=== PATIENT | female | born 1970 | race Caucasian/White ===

== ENCOUNTER 2018-08-12 18:15 | Inpatient (IN) | payer MEDICAID, OTHER ==
[2018-08-12] MEDS: SOD CHLORIDE 0.9% 500 ML IV (18:38)
[2018-08-12 19:35] LABS: WHITE BLOOD COUNT 7.7 10^3/ul (4.8-10.8)
[2018-08-12 19:35] LABS: ADD MAN DIFF? NO; BASOPHILS % 0.4 % (0.0-2.0); EOSINOPHILS # 0.1 10^3/ul (0.0-0.5); EOSINOPHILS % 1.4 % (0.0-7.0); HEMATOCRIT 26.4 % (37.0-47.0); HEMOGLOBIN 8.2 g/dl (12.0-16.0); LYMPHOCYTES # 0.8 10^3/ul (0.8-2.9); LYMPHOCYTES % 10.5 % (15.0-51.0); MEAN CORPUSCULAR HEMOGLOBIN 25.5 pg (29.0-33.0); MEAN CORPUSCULAR HGB CONC 31.1 g/dl (32.0-37.0); MONOCYTE # 0.6 10^3/ul (0.3-0.9); MONOCYTES % 7.2 % (0.0-11.0); NEUTROPHIL # 6.1 10^3/ul (1.6-7.5); NEUTROPHILS % 80.1 % (39.0-77.0); PLATELET COUNT 317 10^3/UL (140-415); RED BLOOD COUNT 3.22 10^6/ul (4.20-5.40); RED CELL DISTRIBUTION WIDTH 17.2 % (11.5-14.5)
[2018-08-12 19:51] LABS: INR 1.08; PROTIME 14.1 Sec (11.9-14.9); PT RATIO 1.1
[2018-08-12 19:52] LABS: PARTIAL THROMBOPLASTIN TIME 36.7 Sec (23.0-35.0)
[2018-08-12 19:56] LABS: ADD UMIC YES; UR ASCORBIC ACID NEGATIVE (NEGATIVE); UR BILIRUBIN (Dip) NEGATIVE (NEGATIVE); UR BLOOD (Dip) 2+ mg/dL (NEGATIVE); UR CLARITY CLEAR (CLEAR); UR COLOR YELLOW (YELLOW); UR GLUCOSE (Dip) NEGATIVE (NEGATIVE); UR KETONES (Dip) NEGATIVE (NEGATIVE); UR LEUKOCYTE ESTERASE (Dip) 1+ Leu/ul (NEGATIVE); UR NITRITE (Dip) NEGATIVE (NEGATIVE); UR RBC 5 /HPF (0-5); UR SPECIFIC GRAVITY (Dip) 1.009 (1.003-1.030); UR SQUAMOUS EPITHELIAL CELL FEW /HPF (FEW); UR TOTAL PROTEIN (Dip) 1+ mg/dl (NEGATIVE); UR UROBILINOGEN (Dip) NEGATIVE (NEGATIVE); UR WBC 16 /HPF (0-5)
[2018-08-12 20:06] LABS: ALANINE AMINOTRANSFERASE 28 IU/L (13-69); ALBUMIN 3.5 g/dl (3.3-4.9); ALBUMIN/GLOBULIN RATIO 0.89; ALKALINE PHOSPHATASE 83 IU/L (42-121); ANION GAP 12 (8-16); ASPARTATE AMINO TRANSFERASE 28 IU/L (15-46); BILIRUBIN,INDIRECT 0.3 mg/dl (0-1.1); BILIRUBIN,TOTAL 0.3 mg/dl (0.2-1.3); BLOOD UREA NITROGEN 12 mg/dl (7-20); CALCIUM 8.5 mg/dl (8.4-10.2); CARBON DIOXIDE 31 mmol/L (21-31); CHLORIDE 95 mmol/L (97-110); CREATININE 1.03 mg/dl (0.44-1.00); GLUCOSE 145 mg/dl (70-220); LIPASE 21 U/L (23-300); SODIUM 135 mmol/L (135-144); TOTAL PROTEIN 7.4 g/dl (6.1-8.1)
[2018-08-12 20:10] LABS: POTASSIUM 2.9 mmol/L (3.5-5.1)
[2018-08-12 20:17] LABS: B-TYPE NATRIURETIC PEPTIDE 368 PG/ML (0-125); TROPONIN-I < 0.012 ng/ml (0.000-0.120)
[2018-08-12] MEDS: CEFTRIAXONE 1 GM/50 ML (PMX) 50 ML IVPB (20:37)
[2018-08-12] MEDS: POTASSIUM CHLORIDE 100 ML IVPB ×2 (20:38→22:42)
[2018-08-12] MEDS: MAGNESIUM SULFATE 1 GM/D5W 100 ML IVPB (20:38)
[2018-08-12] MEDS: POTASSIUM CHLORIDE (SR) 20 MEQ TAB PO (20:38)
[2018-08-12] MEDS: ENOXAPARIN 80 MG/0.8 ML SYG SC (23:47)
[2018-08-13 00:39] LABS: CK-MB 0.43 ng/ml (0.0-2.4); TROPONIN-I < 0.012 ng/ml (0.000-0.120)
[2018-08-13 00:42] LABS: CK INDEX 0.6; CREATINE KINASE 72 IU/L (23-200)
[2018-08-13] MEDS ORDERED: ONDANSETRON 4 MG INJ IV (06:00)
[2018-08-13] MEDS ORDERED: ACETAMINOPHEN 325 MG TAB PO (06:00)
[2018-08-13] MEDS ORDERED: NACL 0.9% 3 ML SYG IV (06:00)
[2018-08-13] MEDS ORDERED: NITROGLYCERIN (SL) 0.4 MG TAB SL (06:00)
[2018-08-13] MEDS ORDERED: ALBUTEROL/IPRATROPIUM (NEB) 3 ML AMP HHN (06:00)
[2018-08-13 06:13] LABS: WHITE BLOOD COUNT 7.1 10^3/ul (4.8-10.8)
[2018-08-13 06:13] LABS: ABNORMAL IP MESSAGE 1; ADD MAN DIFF? NO; BASOPHILS % 0.3 % (0.0-2.0); EOSINOPHILS # 0.1 10^3/ul (0.0-0.5); EOSINOPHILS % 0.8 % (0.0-7.0); HEMATOCRIT 25.3 % (37.0-47.0); HEMOGLOBIN 7.7 g/dl (12.0-16.0); LYMPHOCYTES # 0.5 10^3/ul (0.8-2.9); LYMPHOCYTES % 6.8 % (15.0-51.0); MEAN CORPUSCULAR HEMOGLOBIN 25.3 pg (29.0-33.0); MEAN CORPUSCULAR HGB CONC 30.4 g/dl (32.0-37.0); MEAN CORPUSCULAR VOLUME 83.2 fl (82.0-101.0); MONOCYTE # 0.5 10^3/ul (0.3-0.9); MONOCYTES % 6.8 % (0.0-11.0); PLATELET COUNT 313 10^3/UL (140-415); RED BLOOD COUNT 3.04 10^6/ul (4.20-5.40); RED CELL DISTRIBUTION WIDTH 17.3 % (11.5-14.5)
[2018-08-13 06:25] LABS: POSITIVE DIFF @See below
[2018-08-13 06:38] LABS: HEMOGLOBIN A1C 5.6 % (0-5.9)
[2018-08-13 06:39] LABS: ALBUMIN/GLOBULIN RATIO 0.75; ANION GAP 12 (8-16); BILIRUBIN,TOTAL 0.2 mg/dl (0.2-1.3); CHOL/HDL RATIO 4.7 RATIO; LDL CHOLESTEROL,CALCULATED 73 mg/dl
[2018-08-13 06:43] LABS: ALANINE AMINOTRANSFERASE 34 IU/L (13-69); ALKALINE PHOSPHATASE 73 IU/L (42-121); ASPARTATE AMINO TRANSFERASE 26 IU/L (15-46); BLOOD UREA NITROGEN 13 mg/dl (7-20); CALCIUM 8.7 mg/dl (8.4-10.2); CARBON DIOXIDE 29 mmol/L (21-31); CHLORIDE 105 mmol/L (97-110); CREATININE 0.83 mg/dl (0.44-1.00); GLUCOSE 120 mg/dl (70-220); MAGNESIUM 1.9 mg/dl (1.7-2.5); POTASSIUM 3.8 mmol/L (3.5-5.1); SODIUM 142 mmol/L (135-144)
[2018-08-13 06:44] LABS: ALBUMIN 2.7 g/dl (3.3-4.9); BILIRUBIN,INDIRECT 0.2 mg/dl (0-1.1); CHOLESTEROL 118 mg/dl (100-200); HDL CHOLESTEROL 25 mg/dl (37-92); TOTAL PROTEIN 6.3 g/dl (6.1-8.1); TRIGLYCERIDES 100 mg/dl (0-149)
[2018-08-13 06:51] LABS: CK INDEX 0.5; CK-MB 0.27 ng/ml (0.0-2.4); CREATINE KINASE 54 IU/L (23-200); TROPONIN-I < 0.012 ng/ml (0.000-0.120)
[2018-08-13 08:34] LABS: IRON 43 ug/dl (35-150)
[2018-08-13] MEDS: ENOXAPARIN 80 MG/0.8 ML SYG SC ×2 (08:42→20:52)
[2018-08-13] MEDS: ASPIRIN 81 MG TAB PO (08:43)
[2018-08-13] MEDS: SOD CHLORIDE 0.9% 500 ML IV (08:43)
[2018-08-13 08:44] LABS: % IRON SATURATION 20 % SAT (22-52); TOTAL IRON BINDING CAPACITY 216 ug/dl (241-421)
[2018-08-13] MEDS ORDERED: ENOXAPARIN 80 MG/0.8 ML SYG SC (09:00)
[2018-08-13] MEDS: IOHEXOL 100 ML (15:48)
[2018-08-13] MEDS: SOD CHLORIDE 0.9% 100 ML (15:48)
[2018-08-13 16:40] LABS: OCCULT BLOOD STOOL POSITIVE (NEGATIVE)
[2018-08-13 16:45] LABS: IMMEDIATE SPIN CROSSMATCH 1 1
[2018-08-13] MEDS: traMADol 50 MG TAB PO (18:38)
[2018-08-14] MEDS: traMADol 50 MG TAB PO (03:05)
[2018-08-14 06:13] LABS: ADD MAN DIFF? NO
[2018-08-14 06:25] LABS: WHITE BLOOD COUNT 6.6 10^3/ul (4.8-10.8)
[2018-08-14 06:25] LABS: BASOPHILS % 0.3 % (0.0-2.0); EOSINOPHILS # 0.1 10^3/ul (0.0-0.5); EOSINOPHILS % 1.8 % (0.0-7.0); HEMATOCRIT 27.8 % (37.0-47.0); HEMOGLOBIN 8.5 g/dl (12.0-16.0); LYMPHOCYTES # 0.7 10^3/ul (0.8-2.9); LYMPHOCYTES % 10.8 % (15.0-51.0); MEAN CORPUSCULAR HEMOGLOBIN 25.8 pg (29.0-33.0); MEAN CORPUSCULAR HGB CONC 30.6 g/dl (32.0-37.0); MEAN CORPUSCULAR VOLUME 84.2 fl (82.0-101.0); MEAN PLATELET VOLUME 9.3 fl (7.4-10.4); MONOCYTE # 0.4 10^3/ul (0.3-0.9); MONOCYTES % 6.7 % (0.0-11.0); NEUTROPHIL # 5.3 10^3/ul (1.6-7.5); NEUTROPHILS % 79.9 % (39.0-77.0); PLATELET COUNT 310 10^3/UL (140-415); RED CELL DISTRIBUTION WIDTH 16.9 % (11.5-14.5)
[2018-08-14 06:54] LABS: ANION GAP 11 (8-16); BLOOD UREA NITROGEN 11 mg/dl (7-20); CARBON DIOXIDE 31 mmol/L (21-31); CHLORIDE 102 mmol/L (97-110); CREATININE 0.79 mg/dl (0.44-1.00); GLUCOSE 105 mg/dl (70-220); POTASSIUM 3.3 mmol/L (3.5-5.1); SODIUM 141 mmol/L (135-144)
[2018-08-14] MEDS: ASPIRIN 81 MG TAB PO (08:22)
[2018-08-14] MEDS: ENOXAPARIN 80 MG/0.8 ML SYG SC (08:24)
[2018-08-14] MEDS: POTASSIUM CHLORIDE 20 MEQ POWDER FOR ORAL SOLN PO (08:27)
== END 2018-08-14 13:00 | disposition home or self-care (01) | DRG 313 ==
LOC: E/R 18:15 → TEL 22:23
PROC: 30233N1 Transfusion of Nonautologous Red Blood Cells into Peripheral Vein, Percutaneous Approach (ICD-10-PCS; principal; 2018-08-13)
DX: R07.89 Other chest pain (principal); E87.1 Hypo-osmolality and hyponatremia; N39.0 Urinary tract infection, site not specified; C79.51 Secondary malignant neoplasm of bone; I82.412 Acute embolism and thrombosis of left femoral vein; D63.0 Anemia in neoplastic disease; E87.6 Hypokalemia; D64.81 Anemia due to antineoplastic chemotherapy; Z85.42 Personal history of malignant neoplasm of other parts of uterus; Z86.718 Personal history of other venous thrombosis and embolism
CPT/HCPCS: 36415; 36430; 71045; 71275; 80048; 80053; 80061; 81001; 82270; 82550; 82553; 82728; 83036; 83540; 83690; 83735; 83880; 84443; 84484; 85025; 85610; 85730; 86644; 86850; 86900; 86901; 86920; 87081; 93005; 93306; 93970; 99291-25